=== PATIENT | female | born 1955 | race Caucasian/White ===

== ENCOUNTER 2018-08-16 05:43 | Day surgery (SDC) | payer OTHER ==
[2018-08-13 15:15] VITALS: BMI 23.6
[2018-08-16] MEDS ORDERED: ALPRAZolam 0.25 MG TAB PO PRN (06:00)
[2018-08-16] MEDS ORDERED: SODIUM CHLORIDE 0.9% 1,000 ML in EMPTY BAG 1 BAG IV ONE (06:00)
[2018-08-16] MEDS ORDERED: ASPIRIN 325 MG TAB PO ONE (06:00)
[2018-08-16] MEDS ORDERED: fentaNYL (PF) 50 MCG/ML 2 ML AMP ONE (06:48)
[2018-08-16] MEDS: BENZOCAINE SPRAY 1 CAN MUCOUS MEM ONE ×2 (07:01→07:05)
[2018-08-16] MEDS: fentaNYL (PF) 50 MCG/ML 2 ML AMP IVP ONE ×2 (07:01→07:08)
[2018-08-16 07:03] VITALS: PULSE 65; TEMP 98.6
[2018-08-16] MEDS: MIDAZOLAM (PF) 2 MG/2 ML VIAL IVP ONE ×2 (07:05→07:08)
[2018-08-16] MEDS ORDERED: MIDAZOLAM (PF) 2 MG/2 ML VIAL IVP ONE (07:10)
[2018-08-16] MEDS ORDERED: SODIUM CHLORIDE 0.9% 1,000 ML IV ONE ×2 (07:14→07:41)
[2018-08-16 07:33] LABS: Basophils # (A) 0.1 k/uL (0-0.2); Basophils % (A) 1 %; Eosinophils # (A) 0.6 k/uL (0-0.7); Eosinophils % (A) 5 %; HCT 37.1 % (34.0-46.0); HGB 12.5 gm/dL (11.4-16.0); Lymphocytes # (A) 2.1 k/uL (1.0-4.8); Lymphocytes % (A) 17 %; MCHC 33.6 g/dL (31.0-37.0); MCV 86.3 fL (80.0-100.0); Monocytes # (A) 0.8 k/uL (0-1.0); Monocytes % (A) 7 %; Neutrophils # (A) 8.4 k/uL (1.3-7.7); Neutrophils % (A) 68 %; Platelet Count 300 k/uL (150-450); RDW 15.7 % (11.5-15.5); WBC 12.4 k/uL (3.8-10.6)
[2018-08-16 07:38] LABS: Calcium 10.1 mg/dL (8.4-10.2); Potassium 4.9 mmol/L (3.5-5.1)
[2018-08-16] MEDS ORDERED: LIDOCAINE 1% INJ 10MG/ML (20 ML MDV) ONE ×2 (07:49→07:54)
[2018-08-16] MEDS ORDERED: LIDOCAINE 1% INJ 10MG/ML (20 ML MDV) SQ ONE ×3 (07:52→07:55)
[2018-08-16 08:02] VITALS: RESP 14
--- NOTE | 2018-08-16 08:02 | ECHOT ---
TRANSESOPHAGEAL ECHOCARDIOGRAM INDICATION: Evaluation of aortic valve. PROCEDURE: After explaining the procedure to the patient, its risks and the complications, blood pressure, heart rate, O2 saturation was monitored. The throat was sprayed with Cetacaine. She received 3 mg intravenous Versed and 50 mcg intravenous fentanyl. The probe was introduced into the esophagus without difficulty. Images were obtained. Following that, the probe was removed. There was no immediate complication. FINDINGS: Left atrial size is mildly dilated. Left atrial appendage is normal. Left ventricular size and systolic function normal. The aortic valve is a tricuspid valve with severe calcification by planimetry the valve area is 1.0 centimeter square. The mitral and tricuspid valve are normal. The pulmonic valve is normal. The descending thoracic aorta revealed mild atherosclerotic changes of the descending thoracic aorta. No pericardial effusion was noted. Contrast bubble study revealed no evidence of shunting across the interatrial septum. Doppler pulse wave and color Doppler obtained and revealed moderate aortic regurgitation with mild mitral regurgitation. The peak gradient across the aortic valve was 48 mmHg with a mean of 32 mmHg. There was no shunting by color Doppler study. CONCLUSION: 1. Normal left ventricular size and systolic function. 2. Severely calcified aortic valve, tricuspid valve with aortic valve area of 1 centimeter square and a mean gradient of 32 mmHg consistent with moderate to severe aortic stenosis with moderate aortic regurgitation. 3. Mild mitral regurgitation. 4. Mild atherosclerotic changes of the descending thoracic aorta. 5. No shunting across the interatrial septum. MMODL / IJN: [id number] / MTDD
[2018-08-16] MEDS ORDERED: NITROGLYCERIN 1000MCG/10ML SYRINGE INTRACORON ONE (08:17)
[2018-08-16 08:18] LABS: O2 Sat Blood Gas 71.9 %
[2018-08-16] MEDS ORDERED: IOPAMIDOL-370 100ML BTL INJ ONE ×2 (08:19)
[2018-08-16 08:20] LABS: O2 Sat Blood Gas 98.2 %
[2018-08-16 08:22] LABS: O2 Sat Blood Gas 72.7 %
[2018-08-16] MEDS ORDERED: RX INFO: IV CONTRAST WAS GIVEN 1 EACH MISC MISCELLANE PRN (08:34)
[2018-08-16] MEDS ORDERED: IBUPROFEN 400 MG TAB PO PRN (08:35)
[2018-08-16] MEDS ORDERED: tiZANidine 4 MG TAB PO PRN (08:35)
[2018-08-16] MEDS ORDERED: DIAZEPAM 5 MG TAB PO PRN (08:35)
[2018-08-16] MEDS ORDERED: SODIUM CHLORIDE 0.9% 1,000 ML IV SCH (08:45)
[2018-08-16] MEDS ORDERED: oxyCODONE ER 15 MG TAB.ER.12H PO ONE (09:00)
[2018-08-16] MEDS ORDERED: MULTIVITAMINS, THERA 1 EACH TAB PO SCH (09:00)
[2018-08-16] MEDS ORDERED: BENAZEPRIL PO SCH (09:00)
[2018-08-16] MEDS ORDERED: AMLODIPINE BESYLATE PO SCH (09:00)
--- NOTE | 2018-08-16 09:03 | CC ---
CARDIAC CATHETERIZATION REPORT Mrs. Newman is a 62-year-old female with known history of hypertension, hyperlipidemia, chronic tobacco use, who recently underwent an echocardiogram that was consistent with severe aortic stenosis. In view of that, recommendation was made regarding cardiac catheterization. The procedure as well as the risks and the complications were discussed with the patient who is in full understanding and agreement. PROCEDURE: Patient was brought to photo lab specialist in a fasting semi-sedated state after receiving fentanyl and Benadryl and achieving moderate conscious sedated state. Using Xylocaine anesthesia in the Seldinger technique, a 6-Albanian sheath was introduced in the right femoral artery and an 8-[place]banian sheath in the right femoral vein. Right heart catheterization was performed using [place]-Kirit catheter. Multiple pressure and samples were obtained. Cardiac output by thermodilution was calculated. Following that, selective right and left coronary angiography were performed using 6-[place]banian 4 bend right and left Jeffy catheters. Multiple views of coronary artery including hemiaxial views obtained. A tight pigtail catheter was induced in the left ventricle and pressures were calculated. Following that, catheter and sheath were removed. Hemostasis was obtained with deployment of an Angio-Seal and compression of the right femoral vein. There was no immediate complication. FINDINGS: HEMODYNAMICS: Pulmonary artery systolic pressure of 20 with a diastolic of 8 and a mean of 12 mmHg. Pulmonary capillary wedge pressure A-wave of 6, V-wave of 6 with a mean of 4 mmHg. Right ventricle systolic pressure of 24 with an end-diastolic of 2 mmHg. Right atrial A-wave of 3, V-wave of 2 with a mean of 2 mmHg. Left ventricular end-diastolic pressure of 12 mmHg. Left ventricular systolic pressure of 152 mmHg with an ascending aortic pressure of 128 mmHg with a peak gradient of 28 mmHg and aortic valve area was 1.08 centimeters square. Cardiac output by thermodilution of 4.9 L/minute and by Stacey 4.1 L/minute. Pulmonary artery saturation 72%, right atrial saturation 73%, femoral artery saturation 98%. CORONARIES: LEFT MAIN: This is a short size vessel bifurcating into left circumflex and left anterior descending artery. Left main coronary artery has no evidence of coronary disease. LEFT ANTERIOR DESCENDING ARTERY: This is a large-sized vessel reaching to the apex with a wraparound apex segment giving rise to a large diagonal branch. The left anterior descending artery as well as branches have no evidence of obstructive coronary artery disease. LEFT CIRCUMFLEX: This is a nondominant vessel giving rise to 4 obtuse marginal branches. The second and third one are the largest in caliber. The left circumflex as well as branches have no evidence of obstructive coronary artery disease. RIGHT CORONARY ARTERY: This is a large dominant vessel bifurcating distally PDA and posterolateral segment and branches. The right coronary artery had a catheter-induced spasm that resolved with nitroglycerin intracoronary. It has no evidence of high-grade stenosis. LEFT VENTRICULOGRAM: Left ventriculogram was not performed. CONCLUSION: 1. Normal coronary arteries. 2. Severe aortic stenosis. RECOMMENDATION: In view of finding anatomy, I recommend proceeding with evaluation for possible aortic valve replacement. Those findings and recommendation were discussed with the patient and her family and they are in full understanding and agreement. Duration of procedure is 33 minutes. PAWAN / ANGELITAN: [id number] /
--- NOTE | 2018-08-16 09:03 | LTR ---
August 16, 2018 Re: Patricia Newman Dear Dr. Pollock: I had the opportunity to perform cardiac catheterization on Mrs. Newman at [facility] on the 16 of August and a full copy of the procedure note will be forwarded to you. In brief, she was found to have no evidence of obstructive coronary artery disease with severe aortic stenosis and based on this finding, I would recommend to proceed with evaluation for possible aortic valve replacement. I will keep you updated on her progress. Thank you again for allowing me the opportunity to participate in her care. Please feel free to call for any questions. Sincerely yours, MD PENELOPE LeeL / ANGELITAN: [id number] /
[2018-08-16 13:49] VITALS: BP 124/77
[2018-08-16] MEDS ORDERED: oxyCODONE ER 15 MG TAB.ER.12H PO PRN (16:00)
[2018-08-16] MEDS ORDERED: ATORVASTATIN 80 MG TAB PO SCH (21:00)
== END 2018-08-16 13:30 | disposition home or self-care (01) ==
LOC: CATHCVL 05:43
PROVIDERS: ATTEND Internal Medicine Interventional Cardiology
DX: I08.3 Combined rheumatic disorders of mitral, aortic and tricuspid valves (principal); I70.0 Atherosclerosis of aorta; E78.2 Mixed hyperlipidemia; I11.9 Hypertensive heart disease without heart failure; F17.210 Nicotine dependence, cigarettes, uncomplicated; Z82.49 Family history of ischemic heart disease and other diseases of the circulatory system; Z79.1 Long term (current) use of non-steroidal anti-inflammatories (NSAID); Z79.891 Long term (current) use of opiate analgesic; Z79.899 Other long term (current) drug therapy; Z88.5 Allergy status to narcotic agent
CPT/HCPCS: 93312; 93320; 93325; 93460; 80048; 85018; 82810; 85025; C1760; C1894 ×2; C1769; J2001; J3010; Q9967; J2250

== ENCOUNTER → 2018-10-23 | Outpatient (CLI) | payer OTHER ==
[2018-10-23 10:22] LABS: HCT 32.5 % (34.0-46.0); HGB 10.3 gm/dL (11.4-16.0); MCH 29.2 pg (25.0-35.0); MCHC 31.7 g/dL (31.0-37.0); MCV 92.2 fL (80.0-100.0); Mean Platelet Volume 9.8; Platelet Count 250 k/uL (150-450); RBC 3.53 m/uL (3.80-5.40); RDW 14.7 % (11.5-15.5); WBC 8.6 k/uL (3.8-10.6)
[2018-10-23 10:26] LABS: Appearance,Urine Clear (Clear); Bilirubin,Urine Negative (Negative); Blood,Urine Negative (Negative); Color,Urine Yellow; Glucose,Urine (UA) Negative (Negative); Ketones,Urine Negative (Negative); Leukocyte Esterase,Urine Negative (Negative); Nitrite,Urine Negative (Negative); PH, Urine 5.5 (5.0-8.0); Protein,Urine Negative (Negative); Urobilinogen,Urine <2.0 mg/dL (<2.0)
[2018-10-23 10:31] LABS: Partial Thromboplastin Time 22.2 sec (22.0-30.0); Prothrombin Time 10.3 sec (9.0-12.0)
[2018-10-23 10:40] LABS: Albumin 4.1 g/dL (3.5-5.0); Calcium 9.5 mg/dL (8.4-10.2); Magnesium 2.1 mg/dL (1.6-2.3); Potassium 4.6 mmol/L (3.5-5.1); Total Bilirubin 0.9 mg/dL (0.2-1.3); Total Protein 6.5 g/dL (6.3-8.2)
--- NOTE | 2018-10-23 13:15 | US ---
EXAMINATION TYPE: US carotid duplex BILAT DATE OF EXAM: 10/23/2018 COMPARISON: NONE CLINICAL HISTORY: OPEN HEART. Pre op cardiac surgery EXAM MEASUREMENTS: RIGHT: Peak Systolic Velocity (PSV) cm/sec ----- Right CCA: 98.5 ----- Right ICA: 158.8 ----- Right ECA: 96.5 ICA/CCA ratio: 1.6 RIGHT: End Diastole cm/sec ----- Right CCA: 27.0 ----- Right ICA: 48.5 ----- Right ECA: 13.7 LEFT: Peak Systolic Velocity (PSV) cm/sec ----- Left CCA: 78.7 ----- Left ICA: 111.7 ----- Left ECA: 76.5 ICA/CCA ratio: 1.4 LEFT: End Diastole cm/sec ----- Left CCA: 21.5 ----- Left ICA: 41.3 ----- Left ECA: 13.8 VERTEBRALS (direction of flow): Right Vertebral: Antegrade Left Vertebral: Antegrade Rhythm: Normal Moderate plaque bilateral bifurcations. Increased velocities right ICA Waveform analysis suggests stenosis at the proximal internal carotid artery on the right. IMPRESSION: Hemodynamic significant stenosis of the proximal internal carotid artery on the right co rresponding to possibly 50-69% diameter reduction by Doppler criteria, an indirect measurement of car otid stenosis Criteria for Assigning % of Stenosis / Diameter reduction (Estimation based on the indirect measurements of the internal carotid artery velocities (ICA PSV). 1. Normal (no stenosis)=ICA PSV < 125 cm/s: ratio < 2.0: ICA EDV<40 cm/s. 2. Less than 50% stenosis=ICA PSV < 125 cm/s: ratio < 2.0: ICA EDV<40 cm/s. 3. 50 to 69% stenosis=ICA PSV of 125 to 230 cm/s: ration 2.0 ? 4.0: ICA EDV 40-100 cm/s. 4. Greater than 70% stenosis to near occlusion= ICA PSV > 230 cm/s: ratio > 4.0: ICA EDV > 100 cm/s. 5. Near occlusion= ICA PSV velocities may be low or undetectable: variable ratio and ICA EDV. 6. Total occlusion=unable to detect flow.
--- NOTE | 2018-10-23 13:26 | XR ---
EXAMINATION TYPE: XR chest 2V DATE OF EXAM: 10/23/2018 COMPARISON: NONE HISTORY: Preop TECHNIQUE: Frontal and lateral views of the chest are obtained. FINDINGS: There is no focal air space opacity, pleural effusion, or pneumothorax seen. The cardiac silhouette size is within normal limits. Prominent lung volume may be indicative of underlying COPD. Postop changes are noted to the cervical spine. The osseous structures are intact. IMPRESSION: No acute cardiopulmonary process.
[2018-10-23 18:08] LABS: Hemoglobin A1C 5.6 % (4.0-6.0)
[2018-10-23 19:23] LABS: Hepatitis A Antibody IgM Non-Reactive (Non-Reactive); Hepatitis B Core IgM Non-Reactive (Non-Reactive)
--- NOTE | 2018-10-24 14:47 | P.VSCSTY ---
Greater Saphenous Vein Mapping This is bilateral lower extremity greater saphenous vein mapping. Date of service 10/23/2018 Vein quality and ultrasound appearance no endoluminal thrombus or wall changes are seen. Vein size groin right 6.9 x 5.6 groin left 5.2 x 4.2 High thigh right 4.2 x 3.5 high thigh left 4.1 x 3.1 Mid thigh right 3.8 x 3.4 mid thigh left 4.9 x 3.1 Above-knee right 5.1 x 4.2 above-knee left 3.6 x 3.0 Below knee right 3.9 x 2.8 below-knee left 2.8 x 2.3 Mid calf right 3.2 x 2.8 mid calf left 2.9 x 2.3 Ankle right 2.7 x 2.0 ankle left 2.3 x 1.9 Impression usable bilateral greater saphenous vein.
== END | disposition home or self-care (01) ==
LOC: LABPAT 08:44
PROVIDERS: ATTEND Family Medicine
DX: I35.0 Nonrheumatic aortic (valve) stenosis (principal); E78.2 Mixed hyperlipidemia; I65.21 Occlusion and stenosis of right carotid artery
CPT/HCPCS: 36415; 71046; 80053; 80061; 80074; 81003; 83036; 83735; 84443; 85027; 85610; 85730; 87070; 87086; 93005; 93880; 93970

== ENCOUNTER 2018-10-31 05:59 | Inpatient (IN) | payer OTHER ==
[~2018-10-31 05:59] MED LIST: ALBUMIN HUMAN 25% 50 ML IV ONE; ALBUMIN HUMAN 5% 500 ML IVPB ONE; ASPIRIN 325 MG TAB PO ONE; ATORVASTATIN 10 MG TAB PO ONE; CALCIUM CHLORIDE 100 MG/ML 10 ML SYRINGE IV ONE; CARDIOPLEGIC SOLN (K+ 16 MEQ/L 1,000 ML with SODIUM BICARB (1 MEQ/ML) 20 ML, LIDOCAINE ... PERFUSION ONE; CHLORHEXIDINE GLUCONATE 15 ML CUP MUCOUS MEM ONE; CLEVIDIPINE BUTYRATE 25 MG in EMPTY BAG 1 BAG IV ONE; HEPARIN SODIUM 1,000 UN/ML (10ML VL) IV ONE; HEPARIN SODIUM,PORCINE 5,000 UNIT in SODIUM CHLORIDE 0.9% 500 ML 500 ML IV ONE; INSULIN REGULAR 100 UNIT in SODIUM CHLORIDE 0.9% 100 ML IV ONE; LACTATED RINGERS 1,000 ML IV ONE; MAGNESIUM SULFATE MG 500 MG/ML IV ONE; MANNITOL 25% 12.5 GM/50 ML VIAL IV ONE; METOPROLOL TARTRATE 12.5 MG TAB PO ONE; NITROGLYCERIN SL TABS 0.4 MG TAB SUBLINGUAL ONE; NITROGLYCERIN-D5W PMX 25 MG/250 ML BTL IV ONE; NOREPINEPHRINE 4 MG in SODIUM CHLORIDE 0.9% 250 ML IV ONE; PAPAVERINE 360 MG in SODIUM CHLORIDE 0.9% 90 ML IV ONE; PHENYLEPHRINE 10 MG/ML VIAL IV ONE; PHENYLEPHRINE 40 MG in SODIUM CHLORIDE 0.9% 250 ML IV ONE; PROPOFOL 1,000 MG/100 ML VIAL IV ONE; PROTAMINE SULFATE 10 MG/ML 25 ML VIAL IV ONE; PROTAMINE SULFATE 250 MG in EMPTY BAG 1 BAG IV ONE; SODIUM BICARB 8.4% 50 ML SYR (1 MEQ/ML) IV ONE; SODIUM CHLORIDE 0.9% 1,000 ML IV ONE; TRANEXAMIC ACID 2,000 MG in SODIUM CHLORIDE 0.9% 80 ML IV ONE; VANCOMYCIN 1,000 MG VIAL MISCELLANE ONE; ceFAZolin 1,000 MG in SODIUM CHLORIDE 0.9% IRRIGATIO 1,000 ML IRRIGATION ONE; ceFAZolin 2,000 MG in SODIUM CHLORIDE 0.9% 30 ML IVPB ONE
[2018-10-31] MEDS ORDERED: HEPARIN SODIUM,PORCINE 10,000 UNIT/ML 1 ML VIAL ONE (07:35)
[2018-10-31] MEDS ORDERED: VECURONIUM 10 MG VIAL IV ONE (07:35)
[2018-10-31] MEDS ORDERED: MIDAZOLAM 2 MG/2 ML VIAL ONE (07:35)
[2018-10-31] MEDS ORDERED: PROPOFOL 10 MG/ML 20 ML VIAL IV ONE (07:35)
[2018-10-31] MEDS ORDERED: fentaNYL (PF) 50 MCG/ML 50 ML VIAL ONE (07:35)
[2018-10-31] MEDS ORDERED: NITROGLYCERIN-D5W PMX 50 MG/250 ML BOTTLE IV ONE (07:35)
[2018-10-31] MEDS ORDERED: PROTAMINE SULFATE 10 MG/ML 25 ML VIAL IV ONE (07:35)
[2018-10-31] MEDS ORDERED: SODIUM CHLORIDE 0.9% 250 ML BAG ONE (07:35)
[2018-10-31] MEDS ORDERED: TRANEXAMIC ACID 1,000 MG/10 ML VIAL ONE (07:35)
[2018-10-31] MEDS ORDERED: ELECTROLYTE-R (PH 7.4) 1,000 ML IV.SOLN IV ONE (07:35)
[2018-10-31 08:35] LABS: ABG Base Excess 3.7 mmol/L; ABG Glucose Whole Blood 88 mg/dL (75-99); ABG HCO3 28 mmol/L (21-25); ABG Hematocrit 28 % (34.0-46.0); ABG Ionized Calcium 4.8 mg/dL (4.5-5.3); ABG Lactic Acid Whole Blood 0.9 mmol/L (0.5-1.6); ABG PCO2 37 mmHg (35-45); ABG PH 7.48 (7.35-7.45); ABG PO2 315 mmHg (83-108); ABG Potassium Whole Blood 4.2 mmol/L (3.4-4.5); ABG Sodium Whole Blood 142 mmol/L (135-146); ABG TCO2 29 mmol/L (19-24)
[2018-10-31 09:11] LABS: ABG Base Excess 3.8 mmol/L; ABG HCO3 28 mmol/L (21-25); ABG Hematocrit 27 % (34.0-46.0); ABG Ionized Calcium 4.8 mg/dL (4.5-5.3); ABG PCO2 39 mmHg (35-45); ABG PH 7.46 (7.35-7.45); ABG PO2 285 mmHg (83-108); ABG Sodium Whole Blood 142 mmol/L (135-146); ABG TCO2 29 mmol/L (19-24)
[2018-10-31 09:47] LABS: ABG Base Excess 1.5 mmol/L; ABG Glucose Whole Blood 117 mg/dL (75-99); ABG HCO3 26 mmol/L (21-25); ABG Ionized Calcium 4.6 mg/dL (4.5-5.3); ABG PCO2 39 mmHg (35-45); ABG PH 7.43 (7.35-7.45); ABG PO2 310 mmHg (83-108); ABG Potassium Whole Blood 4.1 mmol/L (3.4-4.5); ABG Sodium Whole Blood 139 mmol/L (135-146); ABG TCO2 27 mmol/L (19-24)
--- NOTE | 2018-10-31 09:53 | P.ANPRN ---
Procedure Note - Anesthesia - Invasive Line Right Central Line Date of Procedure: 10/31/18 Time of Procedure: 06:50 Location of Patient Procedure: PACU Preparation: Sterile Prep, Sterile Dressing Ultrasound Used: Yes Needle Guage: 18 Narrative: Central line placement per sterile protocol utilized. Right [place] Kirit Date of Procedure: 10/31/18 Time of Procedure: 07:05 Location of Patient Procedure: PACU Preparation: Sterile Prep, Sterile Dressing Narrative: [place] had ports flushed and balloon tested. Advanced to 20 cm, balloon inflated. Catheter advanced until PA waveform obtained @ 37 cm. Catheter advanced to 40 cm and balloon deflated. Catheter secured.
[2018-10-31 10:21] LABS: ABG Glucose Whole Blood 91 mg/dL (75-99); ABG HCO3 25 mmol/L (21-25); ABG Ionized Calcium 4.6 mg/dL (4.5-5.3); ABG Lactic Acid Whole Blood 1.7 mmol/L (0.5-1.6); ABG PCO2 41 mmHg (35-45); ABG PH 7.39 (7.35-7.45); ABG PO2 366 mmHg (83-108); ABG Potassium Whole Blood 4.2 mmol/L (3.4-4.5); ABG Sodium Whole Blood 138 mmol/L (135-146); ABG TCO2 26 mmol/L (19-24)
[2018-10-31 11:40] LABS: ABG Base Excess -1.2 mmol/L; ABG Glucose Whole Blood 109 mg/dL (75-99); ABG HCO3 24 mmol/L (21-25); ABG Ionized Calcium 4.1 mg/dL (4.5-5.3); ABG PCO2 40 mmHg (35-45); ABG PH 7.38 (7.35-7.45); ABG PO2 331 mmHg (83-108); ABG Potassium Whole Blood 3.7 mmol/L (3.4-4.5); ABG Sodium Whole Blood 139 mmol/L (135-146); ABG TCO2 25 mmol/L (19-24)
[2018-10-31 11:48] LABS: ABG Hematocrit 21 % (34.0-46.0)
[2018-10-31 11:48] LABS: ABG Glucose Whole Blood 101 mg/dL (75-99)
[2018-10-31 11:49] LABS: ABG Hematocrit 21 % (34.0-46.0)
[2018-10-31 11:50] LABS: ABG Hematocrit 24 % (34.0-46.0); ABG Lactic Acid Whole Blood 2.1 mmol/L (0.5-1.6)
--- NOTE | 2018-10-31 11:55 | P.OP ---
Date of Procedure: 10/31/18 Preoperative Diagnosis: Bicuspid aortic stenosis Postoperative Diagnosis: Same Procedure(s) Performed: Aortic valve replacement with 21 mm of the Avalus bovine pericardial prosthesis, epi-aortic ultrasonography, ligation of left atrial appendage with 35 mm AtriClip Implants: Avalus aortic valve, AtriClip Anesthesia: GETA Surgeon: Mp Petty Supervisor Soakers #1: Aly Georges Supervisor Soakers #2: Gaston Avitia Estimated Blood Loss (ml): 200 IV fluids (ml): 2,000 Urine output (ml): 500 Pathology: other (Aortic valve) Condition: stable Disposition: ICU Indications for Procedure: 63-year-old female with worsening shortness of breath and severe aortic valve stenosis due to bicuspid aortic valve Operative Findings: Calcific bicuspid aortic valve with fusion of the left and right cusps. Severe calcification of the annulus. Small aortic root. Description of Procedure: The patient was brought to the operating room placed supine on the operating table anesthetized and intubated. T probe was placed. The anterior torso and lower extremities were sterilely prepped and draped. Midline sternotomy was performed. Standard sternal retractor was placed. The left pleural space was opened widely and the right pleural space was opened minimally. Pericardium was opened in the midline and the heart exposed with pericardial sutures. Epi- aortic ultrasonography was performed. The ascending aorta was normal. Standard cannulation sutures were placed. Patient was heparinized and cannulated with a 6 mm soft flow cannula in the distal ascending aorta and a two-stage venous cannula through the right atrial appendage into the inferior vena cava. Antegrade and retrograde cardioplegia lines were placed. Pursestring suture was placed in the right superior pulmonary vein. Patient was placed on cardiopulmonary bypass and stabilized. Aorta was crossclamped and the heart was arrested with cold crystalloid cardioplegia followed by retrograde cardioplegia. Left atrial vent was placed through the right superior pulmonary vein pursestring. Aorta was opened transversely and the aortic valve was exposed. Aortic valve was excised and the annulus decalcified. Copious irrigation was performed. Circumferential valve sutures of 2-0 Tycron were placed with pledgets on the ventricular side to allow a supra-annular implantation. The annulus was sized. A 21 sizer fit very easily. A 23 sizer did not fit. Was decided to place a 21 mm Avalus bovine pericardial valve. This was appropriately washed on the back table and brought up onto the field. The valve sutures were placed in the sewing ring of the valve and it was seated without difficulty. Valve sutures were tied and cut and the valve was noted to have seated well. We again irrigated and then closed the aorta with a 2 layer running closure of 4-0 Prolene. This was reinforced with some pro-gel. Left atrial vent was removed and the pursestring suture tied. Patient was placed in Trendelenburg and the cross-clamp was removed. Retrograde cardioplegia line was removed and atrial and ventricular pacing wires were placed. Patient returned to a spontaneous sinus rhythm. Heart was de-aired through the apex with a 16- gauge Angiocath. The site was oversewn with a 6-0 Prolene. The aortic vent line was then removed and the pursestring suture tied. Patient was weaned from cardiopulmonary bypass without the use of inotropic support. Heparin was reversed with protamine and she was decannulated in standard fashion. The aortic cannulation site was reinforced with a 4 pledgeted Prolene suture. Left atrial cannulation site was reinforced with a 0 silk tie. Good hemostasis was obtained throughout. Left pleural space was drained with 32-[place] chest tube in the mediastinum with a 36-[place] chest tube. Chest was irrigated with antibiotic solution. Sternum was closed with 8 sternal wires. Fascia was closed with 0 Ethibond. Subcutaneous and subcuticular layers were closed with layers of Vicryl suture. Dry sterile dressings were applied and the patient was transferred to the ICU in stable condition on no inotropic support having received no blood transfusions.
[2018-10-31] MEDS ORDERED: AMIODARONE 360 MG in DEXTROSE 5% IN WATER 200 ML IV PRN ×2 (11:57)
[2018-10-31] MEDS ORDERED: Magnesium Replacement Protocol 1 EACH MISC MISCELLANE PRN (11:57)
[2018-10-31] MEDS ORDERED: IPRATROPIUM-ALBUTEROL 3 ML NEB INHALATION PRN (11:57)
[2018-10-31] MEDS ORDERED: METOCLOPRAMIDE 5 MG/ML 2 ML VIAL IVP PRN (11:57)
[2018-10-31] MEDS ORDERED: AMIODARONE 300 MG in DEXTROSE 5% IN WATER 250 ML IV PRN ×2 (11:57)
[2018-10-31] MEDS ORDERED: INSULIN REGULAR 100 UNIT in SODIUM CHLORIDE 0.9% 100 ML IV SCH (11:57)
[2018-10-31] MEDS ORDERED: Potassium Replacement Protocol 1 EACH MISC MISCELLANE PRN (11:57)
[2018-10-31] MEDS ORDERED: DEXTROSE 5% IN WATER 100 ML with AMIODARONE 150 MG IV PRN (11:57)
[2018-10-31] MEDS ORDERED: BENZOCAINE/MENTHOL LOZENG 1 EACH LOZENGE MUCOUS MEM PRN (11:57)
[2018-10-31] MEDS ORDERED: ONDANSETRON 4 MG/2 ML VIAL IVP PRN (11:57)
[2018-10-31] MEDS ORDERED: CALCIUM GLUCONATE 2 GM in SODIUM CHLORIDE 0.9% 100 ML IVPB PRN (11:57)
[2018-10-31] MEDS ORDERED: PROPOFOL 1,000 MG in EMPTY BAG 1 BAG IV SCH (11:57)
[2018-10-31] MEDS ORDERED: Phosphorus Replacement Protoco 1 EACH MISC MISCELLANE PRN (11:57)
[2018-10-31 12:22] LABS: Glucose,Whole Blood 104 mg/dL (75-99)
[2018-10-31 12:26] LABS: Ionized Calcium 4.6 mg/dL (4.5-5.3)
[2018-10-31 12:29] LABS: Basophils % (A) 1 %; Eosinophils # (A) 0.4 k/uL (0-0.7); Eosinophils % (A) 4 %; HCT 25.2 % (34.0-46.0); Lymphocytes # (A) 1.1 k/uL (1.0-4.8); Lymphocytes % (A) 11 %; MCH 29.6 pg (25.0-35.0); MCHC 32.4 g/dL (31.0-37.0); MCV 91.1 fL (80.0-100.0); Mean Platelet Volume 9.8; Monocytes # (A) 0.5 k/uL (0-1.0); Monocytes % (A) 5 %; Neutrophils # (A) 7.5 k/uL (1.3-7.7); Neutrophils % (A) 79 %; RBC 2.76 m/uL (3.80-5.40); WBC 9.5 k/uL (3.8-10.6)
--- NOTE | 2018-10-31 12:29 | XR ---
EXAMINATION TYPE: XR chest 1V portable DATE OF EXAM: 10/31/2018 COMPARISON: 10/23/2018 HISTORY: Post surgery TECHNIQUE: Single frontal view of the chest is obtained. FINDINGS: [place]-Kirit catheter seen overlying proximal pulmonary outflow tract. Suggestion of epicardi al lead. ET tube 1.7 cm above maral. NG tube seen coursing in the left upper quadrant of the abdomen . Mediastinal drain and left-sided chest tube. Less than 5% left apical pneumothorax. Heart size norm al. No consolidation or pleural effusion. IMPRESSION: 1. Postoperative change with tiny left apical less than 5% pneumothorax.
[2018-10-31 12:31] LABS: INR 1.2 (<1.2); Prothrombin Time 12.6 sec (9.0-12.0)
[2018-10-31] MEDS: IPRATROPIUM-ALBUTEROL 3 ML NEB INHALATION SCH ×4 (12:35→19:46)
[2018-10-31 12:38] LABS: ALT 25 U/L (9-52); AST 25 U/L (14-36); African American GFR (CKD) >90 (>60 ml/min/1.73 sqM); Albumin 2.3 g/dL (3.5-5.0); Alkaline Phosphatase 49 U/L (38-126); Anion Gap 5 mmol/L; Blood Urea Nitrogen 17 mg/dL (7-17); Calcium 7.4 mg/dL (8.4-10.2); Carbon Dioxide 23 mmol/L (22-30); Chloride 111 mmol/L (98-107); Glucose 99 mg/dL (74-99); Magnesium 3.1 mg/dL (1.6-2.3); Potassium 3.9 mmol/L (3.5-5.1); Sodium 139 mmol/L (137-145); Total Bilirubin 0.4 mg/dL (0.2-1.3); Total Protein 3.8 g/dL (6.3-8.2)
[2018-10-31 12:40] LABS: ABG HCO3 25 mmol/L (21-25); ABG PCO2 40 mmHg (35-45); ABG PO2 >400 mmHg (83-108); ABG TCO2 26 mmol/L (19-24)
[2018-10-31 12:44] LABS: HGB 8.2 gm/dL (11.4-16.0)
[2018-10-31] MEDS: CLEVIDIPINE BUTYRATE 25 MG in EMPTY BAG 1 BAG IV SCH (12:45)
[2018-10-31 13:12] LABS: Glucose,Whole Blood 110 mg/dL (75-99)
[2018-10-31 13:17] LABS: Platelet Count 97 k/uL (150-450)
[2018-10-31 13:18] LABS: Anisocytosis (M) Present
[2018-10-31] MEDS: ACETAMINOPHEN IV (For NPO) 1,000 MG in EMPTY BAG 1 BAG IVPB SCH ×2 (13:19→20:51)
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
[2018-10-31] MEDS ORDERED: fentaNYL (PF) 50 MCG/ML 2 ML AMP IVP ONE (13:43)
[2018-10-31] MEDS ORDERED: DEXMEDETOMIDINE/0.9% NACL(PMX) 400 MCG in EMPTY BAG 1 BAG IV SCH (13:45)
[2018-10-31] MEDS: LACTATED RINGERS 1,000 ML IV SCH (14:01)
[2018-10-31] MEDS: POTASSIUM CHLORIDE 10 MEQ in WATER FOR INJECTION 1 100ML.BAG IVPB SCH ×2 (14:14→16:00)
[2018-10-31 14:20] LABS: Glucose,Whole Blood 157 mg/dL (75-99)
[2018-10-31 15:29] LABS: Glucose,Whole Blood 135 mg/dL (75-99)
[2018-10-31 15:51] LABS: ABG Base Excess -0.3 mmol/L; ABG HCO3 25 mmol/L (21-25); ABG PCO2 44 mmHg (35-45); ABG PH 7.37 (7.35-7.45); ABG PO2 128 mmHg (83-108); ABG TCO2 26 mmol/L (19-24); Allen Test Performed? Yes
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
[2018-10-31 16:02] LABS: Basophils # (A) 0.1 k/uL (0-0.2); Basophils % (A) 1 %; Eosinophils # (A) 0.3 k/uL (0-0.7); Eosinophils % (A) 2 %; HCT 29.5 % (34.0-46.0); HGB 9.6 gm/dL (11.4-16.0); Lymphocytes # (A) 1.3 k/uL (1.0-4.8); Lymphocytes % (A) 10 %; MCH 29.4 pg (25.0-35.0); MCHC 32.3 g/dL (31.0-37.0); MCV 90.8 fL (80.0-100.0); Mean Platelet Volume 9.6; Monocytes # (A) 0.6 k/uL (0-1.0); Monocytes % (A) 4 %; Neutrophils # (A) 10.6 k/uL (1.3-7.7); Neutrophils % (A) 82 %; Platelet Count 127 k/uL (150-450); RBC 3.26 m/uL (3.80-5.40); RDW 14.1 % (11.5-15.5)
[2018-10-31] MEDS: oxyCODONE ER 15 MG TAB.ER.12H PO SCH ×2 (16:25→23:00)
[2018-10-31] MEDS: ceFAZolin IN SWFI 2 GM/20 ML SYRINGE IVP SCH (16:46)
[2018-10-31] MEDS: ALBUMIN HUMAN 5% 250 ML in EMPTY BAG 1 BAG IVPB PRN ×3 (17:09→22:14)
[2018-10-31 17:11] LABS: Glucose,Whole Blood 131 mg/dL (75-99)
[2018-10-31 18:26] LABS: Glucose,Whole Blood 118 mg/dL (75-99)
[2018-10-31 18:27] LABS: Basophils # (A) 0.1 k/uL (0-0.2); Basophils % (A) 1 %; Eosinophils # (A) 0.2 k/uL (0-0.7); Eosinophils % (A) 2 %; HCT 28.9 % (34.0-46.0); HGB 9.3 gm/dL (11.4-16.0); Lymphocytes % (A) 9 %; MCH 29.3 pg (25.0-35.0); MCHC 32.2 g/dL (31.0-37.0); MCV 91.2 fL (80.0-100.0); Mean Platelet Volume 10.2; Monocytes # (A) 0.4 k/uL (0-1.0); Monocytes % (A) 4 %; Neutrophils # (A) 8.7 k/uL (1.3-7.7); Neutrophils % (A) 84 %; Platelet Count 121 k/uL (150-450); RBC 3.17 m/uL (3.80-5.40); WBC 10.4 k/uL (3.8-10.6)
[2018-10-31 19:27] LABS: Glucose,Whole Blood 121 mg/dL (75-99)
[2018-10-31] MEDS: tiZANidine 4 MG TAB PO PRN (19:53)
[2018-10-31] MEDS: KETOROLAC 30 MG/ML 1 ML VIAL IVP SCH (20:40)
[2018-10-31] MEDS: fentaNYL (PF) 50 MCG/ML 2 ML AMP IVP PRN ×2 (20:45→23:45)
[2018-10-31] MEDS: HEPARIN SODIUM,PORCINE 5,000 UNIT/ML 1 ML VIAL SQ SCH (21:18)
[2018-10-31 21:33] LABS: Glucose,Whole Blood 143 mg/dL (75-99)
[2018-10-31 22:19] LABS: Glucose,Whole Blood 127 mg/dL (75-99)
[2018-10-31] MEDS: MUPIROCIN 2% OINT 22 GM TUBE NASAL SCH (23:02)
[2018-10-31 23:51] LABS: Glucose,Whole Blood 116 mg/dL (75-99)
[2018-11-01] MEDS: ceFAZolin IN SWFI 2 GM/20 ML SYRINGE IVP SCH ×2 (00:41→08:48)
[2018-11-01 01:26] LABS: Glucose,Whole Blood 106 mg/dL (75-99)
[2018-11-01] MEDS ORDERED: HYDROcodone/APAP 5-325MG 1 EACH TAB PO PRN (02:00)
[2018-11-01 03:22] LABS: Glucose,Whole Blood 116 mg/dL (75-99)
[2018-11-01] MEDS: HYDROcodone/APAP 5-325MG 1 EACH TAB PO PRN ×3 (03:25→20:10)
[2018-11-01] MEDS: HEPARIN SODIUM,PORCINE 5,000 UNIT/ML 1 ML VIAL SQ SCH ×3 (03:32→20:11)
[2018-11-01] MEDS: KETOROLAC 30 MG/ML 1 ML VIAL IVP SCH ×4 (05:31→23:15)
[2018-11-01 06:03] LABS: Glucose,Whole Blood 114 mg/dL (75-99)
[2018-11-01 06:17] LABS: Basophils % (A) 0 %; Eosinophils # (A) 0.2 k/uL (0-0.7); Eosinophils % (A) 3 %; HCT 27.2 % (34.0-46.0); HGB 8.9 gm/dL (11.4-16.0); Lymphocytes % (A) 12 %; MCH 29.4 pg (25.0-35.0); MCHC 32.8 g/dL (31.0-37.0); MCV 89.6 fL (80.0-100.0); Mean Platelet Volume 10.4; Monocytes # (A) 0.4 k/uL (0-1.0); Monocytes % (A) 5 %; Neutrophils # (A) 6.6 k/uL (1.3-7.7); Neutrophils % (A) 80 %; RBC 3.03 m/uL (3.80-5.40); RDW 14.4 % (11.5-15.5); WBC 8.2 k/uL (3.8-10.6)
[2018-11-01 06:24] LABS: Ionized Calcium 5.1 mg/dL (4.5-5.3)
[2018-11-01 06:40] LABS: Platelet Count 90 k/uL (150-450)
[2018-11-01] MEDS: fentaNYL (PF) 50 MCG/ML 2 ML AMP IVP PRN ×2 (06:50→10:26)
[2018-11-01 06:51] LABS: Albumin 3.2 g/dL (3.5-5.0); Calcium 8.5 mg/dL (8.4-10.2); Magnesium 2.5 mg/dL (1.6-2.3); Total Bilirubin 0.7 mg/dL (0.2-1.3); Total Protein 4.9 g/dL (6.3-8.2)
[2018-11-01] MEDS: IPRATROPIUM-ALBUTEROL 3 ML NEB INHALATION SCH ×4 (07:27→19:52)
[2018-11-01] MEDS: METOPROLOL TARTRATE 12.5 MG TAB PO SCH ×2 (08:48→20:15)
[2018-11-01] MEDS: LACTATED RINGERS 1,000 ML IV SCH (08:48)
[2018-11-01] MEDS: ASPIRIN 325 MG TAB PO SCH (08:48)
[2018-11-01] MEDS: ATORVASTATIN 40 MG TAB PO SCH (08:48)
[2018-11-01] MEDS: MULTIVITAMINS, THERA 1 EACH TAB PO SCH (08:49)
[2018-11-01] MEDS: oxyCODONE ER 15 MG TAB.ER.12H PO SCH ×3 (08:49→21:46)
[2018-11-01] MEDS: MUPIROCIN 2% OINT 22 GM TUBE NASAL SCH ×2 (08:54→21:47)
[2018-11-01] MEDS ORDERED: MAGNESIUM HYDROXIDE 2,400 MG/10 ML CUP PO PRN (09:00)
[2018-11-01] MEDS ORDERED: PANTOPRAZOLE 40 MG/10 ML VIAL IVP SCH (09:00)
[2018-11-01] MEDS ORDERED: BISACODYL 10 MG SUPP RECTAL PRN (09:00)
[2018-11-01 09:09] LABS: Glucose,Whole Blood 186 mg/dL (75-99)
--- NOTE | 2018-11-01 09:50 | XR ---
EXAMINATION TYPE: XR chest 1V portable DATE OF EXAM: 11/01/2018 COMPARISON: 10/31/2018 HISTORY: Postop TECHNIQUE: Single frontal view of the chest is obtained. FINDINGS: Mediastinal drain and chest tube stable. [place]-Kirit catheter stable. ET and NG tube have be en removed. Bilateral consolidation and small effusion. No sizable pneumothorax. Cardiomegaly and pos tsurgical changes noted. Atherosclerotic change aorta. Suggestion of epicardial lead. Tiny less than 5% left apical pneumothorax. IMPRESSION: 1. Interval development of small bilateral effusions and basilar atelectasis. Mild central venous con gestion in the differential diagnosis. 2. Stable tiny less than 5% left apical pneumothorax.
--- NOTE | 2018-11-01 10:00 | P.PN ---
Subjective Progress Note Date: 11/01/18 Principal diagnosis: aortic valve replacement Objective - Vital Signs Vital signs: Vital Signs Temp 99.1 F 11/01/18 08:00 Pulse 85 11/01/18 09:00 Resp 22 11/01/18 09:00 BP 93/60 11/01/18 09:00 Pulse Ox 96 11/01/18 09:00 Intake & Output 10/31/18 11/01/18 11/01/18 18:59 06:59 18:59 Intake Total 855.784 975.000 174.528 Output Total 3690 1110 240 Balance -2834.216 -135.000 -65.472 Weight 73.1 kg Intake: IV 108 436 170 0.9NS Cardiac Output 70 50 20 0.9NS Pressure Bag 36 36 Lactated Ringers 1,000 ml 350 150 @ 50 mls/hr IV .Q20H [facility] Rx#:[id number] Intake, IV Titration 747.784 539.000 4.528 Amount ACETAMINOPHEN IV (For NPO 100 ) 1,000 mg In Empty Bag 1 bag @ 400 mls/hr IVPB Q6H [facility] Rx#:[id number] Albumin Human 5% 250 ml 250 250 In Empty Bag 1 bag @ 250 mls/hr IVPB Q1HR PRN Rx#: [id number] Clevidipine Butyrate 25 6.833 mg In Empty Bag 1 bag @ 1 MG/HR 2 mls/hr IV .Q24H [facility] Rx#:[id number] Dexmedetomidine/0.9% NaCl 16.336 83.664 (Pmx) 400 mcg In Empty Bag 1 bag @ Titrate IV . Q0M [facility] Rx#:[id number] Insulin Regular 100 unit 4.916 5.336 4.528 In Sodium Chloride 0.9% 100 ml @ Per Protocol IV .Q0M [facility] Rx#:[id number] Lactated Ringers 1,000 ml 250 200 @ 50 mls/hr IV .Q20H [facility] Rx#:[id number] Potassium Chloride 10 meq 100 In Water For Injection 1 100ml.bag @ 100 mls/hr IVPB Q1H [facility] Rx#: [id number] Propofol 1,000 mg In 19.699 Empty Bag 1 bag @ Titrate IV .Q0M [facility] Rx#: [id number] Output: Chest Tube Drainage 190 280 80 Mediastinal and Left 190 280 80 Pleural Urine 1000 830 160 Estimated Blood Loss 2500 Other: Voiding Method Indwelling Catheter Indwelling Catheter ABP, PAP, CO, CI - Last Documented Arterial Blood Pressure 146/62 Pulmonary Artery Pressure 28/16 Cardiac Output 4.6 Cardiac Index 2.7 - Exam Constitutional: No acute distress, conversant Eyes: Anicteric sclerae, moist conjunctiva, no lid-lag, PERRLA ENMT: NC/AT,Oropharynx clear Neck:Supple, No carotid bruits; No thyromegaly Lungs: Clear to auscultation, Clear to percussion, Normal respiratory effort, no accessory muscle use Cardiovascular: Heart regular in rate and rhythm, No murmurs, gallops, or rubs no peripheral edema Abdominal: Soft Nontender, nom distended, no guarding, no rebound or rigidity, Normoactive bowel sounds Extremities:No digital cyanosis No clubbing, Psychiatric: Alert and oriented to person, place and time Neuro: Muscles Strength 5/5 in all 4 extremities, Sensation to light touch grossly present throughout, Cranial nerves II-XII grossly intact. - Labs CBC & Chem 7: 11/01/18 05:45 11/01/18 05:45 Labs: Abnormal Lab Results - Last 24 Hours (Table) 10/23/18 10/31/18 10/31/18 Range/Units 09:00 08:36 09:13 WBC (3.8-10.6) k/uL RBC (3.80-5.40) m/uL Hgb (11.4-16.0) gm/dL Hct (34.0-46.0) % Plt Count (150-450) k/uL Neutrophils # (1.3-7.7) k/uL PT (9.0-12.0) sec INR (<1.2) ABG pH 7.48 H 7.46 H (7.35-7.45) ABG pO2 315 H 285 H (83-108) mmHg ABG HCO3 28 H 28 H (21-25) mmol/L ABG Total CO2 29 H 29 H (19-24) mmol/L ABG O2 Saturation 100.0 H 100.0 H (94-97) % ABG Hematocrit 28 L 27 L (34.0-46.0) % ABG Ionized Calcium (4.5-5.3) mg/dL ABG Glucose 101 H (75-99) mg/dL ABG Lactic Acid (0.5-1.6) mmol/L Hemoglobin 9.3 L 8.8 L (11.4-16.0) gm/dL Chloride (98-107) mmol/L Glucose (74-99) mg/dL POC Glucose (mg/dL) (75-99) mg/dL Calcium (8.4-10.2) mg/dL Magnesium (1.6-2.3) mg/dL AST (14-36) U/L Total Protein (6.3-8.2) g/dL Albumin (3.5-5.0) g/dL Arterial Blood Glucose 101 H (75-99) mg/dL Crossmatch See Detail 10/31/18 10/31/18 10/31/18 Range/Units 09:48 10:22 11:41 WBC (3.8-10.6) k/uL RBC (3.80-5.40) m/uL Hgb (11.4-16.0) gm/dL Hct (34.0-46.0) % Plt Count (150-450) k/uL Neutrophils # (1.3-7.7) k/uL PT (9.0-12.0) sec INR (<1.2) ABG pH (7.35-7.45) ABG pO2 310 H 366 H 331 H (83-108) mmHg ABG HCO3 26 H (21-25) mmol/L ABG Total CO2 27 H 26 H 25 H (19-24) mmol/L ABG O2 Saturation 100.0 H 100.0 H 100.0 H (94-97) % ABG Hematocrit 21 L 21 L 24 L (34.0-46.0) % ABG Ionized Calcium 4.1 L (4.5-5.3) mg/dL ABG Glucose 117 H 109 H (75-99) mg/dL ABG Lactic Acid 1.7 H 2.1 H (0.5-1.6) mmol/L Hemoglobin 7.0 L* 6.7 L* 7.8 L (11.4-16.0) gm/dL Chloride (98-107) mmol/L Glucose (74-99) mg/dL POC Glucose (mg/dL) (75-99) mg/dL Calcium (8.4-10.2) mg/dL Magnesium (1.6-2.3) mg/dL AST (14-36) U/L Total Protein (6.3-8.2) g/dL Albumin (3.5-5.0) g/dL Arterial Blood Glucose 117 H 109 H (75-99) mg/dL Crossmatch 10/31/18 10/31/18 10/31/18 Range/Units 12:05 12:05 12:05 WBC (3.8-10.6) k/uL RBC 2.76 L (3.80-5.40) m/uL Hgb 8.2 L D (11.4-16.0) gm/dL Hct 25.2 L (34.0-46.0) % Plt Count 97 L D (150-450) k/uL Neutrophils # (1.3-7.7) k/uL PT 12.6 H (9.0-12.0) sec INR 1.2 H (<1.2) ABG pH (7.35-7.45) ABG pO2 (83-108) mmHg ABG HCO3 (21-25) mmol/L ABG Total CO2 (19-24) mmol/L ABG O2 Saturation (94-97) % ABG Hematocrit (34.0-46.0) % ABG Ionized Calcium (4.5-5.3) mg/dL ABG Glucose (75-99) mg/dL ABG Lactic Acid (0.5-1.6) mmol/L Hemoglobin (11.4-16.0) gm/dL Chloride 111 H (98-107) mmol/L Glucose (74-99) mg/dL POC Glucose (mg/dL) (75-99) mg/dL Calcium 7.4 L (8.4-10.2) mg/dL Magnesium 3.1 H (1.6-2.3) mg/dL AST (14-36) U/L Total Protein 3.8 L (6.3-8.2) g/dL Albumin 2.3 L (3.5-5.0) g/dL Arterial Blood Glucose (75-99) mg/dL Crossmatch 07/10/19 07/10/19 07/10/19 Range/Units 12:10 12:35 13:00 WBC (3.8-10.6) k/uL RBC (3.80-5.40) m/uL Hgb (11.4-16.0) gm/dL Hct (34.0-46.0) % Plt Count (150-450) k/uL Neutrophils # (1.3-7.7) k/uL PT (9.0-12.0) sec INR (<1.2) ABG pH (7.35-7.45) ABG pO2 >400 H (83-108) mmHg ABG HCO3 (21-25) mmol/L ABG Total CO2 26 H (19-24) mmol/L ABG O2 Saturation 100.0 H (94-97) % ABG Hematocrit (34.0-46.0) % ABG Ionized Calcium (4.5-5.3) mg/dL ABG Glucose (75-99) mg/dL ABG Lactic Acid (0.5-1.6) mmol/L Hemoglobin (11.4-16.0) gm/dL Chloride (98-107) mmol/L Glucose (74-99) mg/dL POC Glucose (mg/dL) 104 H 110 H (75-99) mg/dL Calcium (8.4-10.2) mg/dL Magnesium (1.6-2.3) mg/dL AST (14-36) U/L Total Protein (6.3-8.2) g/dL Albumin (3.5-5.0) g/dL Arterial Blood Glucose (75-99) mg/dL Crossmatch 10/31/18 10/31/18 10/31/18 Range/Units 14:09 15:17 15:20 WBC 13.0 H (3.8-10.6) k/uL RBC 3.26 L (3.80-5.40) m/uL Hgb 9.6 L (11.4-16.0) gm/dL Hct 29.5 L (34.0-46.0) % Plt Count 127 L (150-450) k/uL Neutrophils # 10.6 H (1.3-7.7) k/uL PT (9.0-12.0) sec INR (<1.2) ABG pH (7.35-7.45) ABG pO2 (83-108) mmHg ABG HCO3 (21-25) mmol/L ABG Total CO2 (19-24) mmol/L ABG O2 Saturation (94-97) % ABG Hematocrit (34.0-46.0) % ABG Ionized Calcium (4.5-5.3) mg/dL ABG Glucose (75-99) mg/dL ABG Lactic Acid (0.5-1.6) mmol/L Hemoglobin (11.4-16.0) gm/dL Chloride (98-107) mmol/L Glucose (74-99) mg/dL POC Glucose (mg/dL) 157 H 135 H (75-99) mg/dL Calcium (8.4-10.2) mg/dL Magnesium (1.6-2.3) mg/dL AST (14-36) U/L Total Protein (6.3-8.2) g/dL Albumin (3.5-5.0) g/dL Arterial Blood Glucose (75-99) mg/dL Crossmatch 10/31/18 10/31/18 10/31/18 Range/Units 15:47 16:57 18:15 WBC (3.8-10.6) k/uL RBC (3.80-5.40) m/uL Hgb (11.4-16.0) gm/dL Hct (34.0-46.0) % Plt Count (150-450) k/uL Neutrophils # (1.3-7.7) k/uL PT (9.0-12.0) sec INR (<1.2) ABG pH (7.35-7.45) ABG pO2 128 H (83-108) mmHg ABG HCO3 (21-25) mmol/L ABG Total CO2 26 H (19-24) mmol/L ABG O2 Saturation 99.0 H (94-97) % ABG Hematocrit (34.0-46.0) % ABG Ionized Calcium (4.5-5.3) mg/dL ABG Glucose (75-99) mg/dL ABG Lactic Acid (0.5-1.6) mmol/L Hemoglobin (11.4-16.0) gm/dL Chloride (98-107) mmol/L Glucose (74-99) mg/dL POC Glucose (mg/dL) 131 H 118 H (75-99) mg/dL Calcium (8.4-10.2) mg/dL Magnesium (1.6-2.3) mg/dL AST (14-36) U/L Total Protein (6.3-8.2) g/dL Albumin (3.5-5.0) g/dL Arterial Blood Glucose (75-99) mg/dL Crossmatch 10/31/18 10/31/18 10/31/18 Range/Units 18:20 19:15 21:21 WBC (3.8-10.6) k/uL RBC 3.17 L (3.80-5.40) m/uL Hgb 9.3 L (11.4-16.0) gm/dL Hct 28.9 L (34.0-46.0) % Plt Count 121 L (150-450) k/uL Neutrophils # 8.7 H (1.3-7.7) k/uL PT (9.0-12.0) sec INR (<1.2) ABG pH (7.35-7.45) ABG pO2 (83-108) mmHg ABG HCO3 (21-25) mmol/L ABG Total CO2 (19-24) mmol/L ABG O2 Saturation (94-97) % ABG Hematocrit (34.0-46.0) % ABG Ionized Calcium (4.5-5.3) mg/dL ABG Glucose (75-99) mg/dL ABG Lactic Acid (0.5-1.6) mmol/L Hemoglobin (11.4-16.0) gm/dL Chloride (98-107) mmol/L Glucose (74-99) mg/dL POC Glucose (mg/dL) 121 H 143 H (75-99) mg/dL Calcium (8.4-10.2) mg/dL Magnesium (1.6-2.3) mg/dL AST (14-36) U/L Total Protein (6.3-8.2) g/dL Albumin (3.5-5.0) g/dL Arterial Blood Glucose (75-99) mg/dL Crossmatch 10/31/18 10/31/18 11/01/18 Range/Units 22:07 23:40 01:14 WBC (3.8-10.6) k/uL RBC (3.80-5.40) m/uL Hgb (11.4-16.0) gm/dL Hct (34.0-46.0) % Plt Count (150-450) k/uL Neutrophils # (1.3-7.7) k/uL PT (9.0-12.0) sec INR (<1.2) ABG pH (7.35-7.45) ABG pO2 (83-108) mmHg ABG HCO3 (21-25) mmol/L ABG Total CO2 (19-24) mmol/L ABG O2 Saturation (94-97) % ABG Hematocrit (34.0-46.0) % ABG Ionized Calcium (4.5-5.3) mg/dL ABG Glucose (75-99) mg/dL ABG Lactic Acid (0.5-1.6) mmol/L Hemoglobin (11.4-16.0) gm/dL Chloride (98-107) mmol/L Glucose (74-99) mg/dL POC Glucose (mg/dL) 127 H 116 H 106 H (75-99) mg/dL Calcium (8.4-10.2) mg/dL Magnesium (1.6-2.3) mg/dL AST (14-36) U/L Total Protein (6.3-8.2) g/dL Albumin (3.5-5.0) g/dL Arterial Blood Glucose (75-99) mg/dL Crossmatch 11/01/18 11/01/18 11/01/18 Range/Units 03:11 05:45 05:45 WBC (3.8-10.6) k/uL RBC 3.03 L (3.80-5.40) m/uL Hgb 8.9 L (11.4-16.0) gm/dL Hct 27.2 L (34.0-46.0) % Plt Count 90 L (150-450) k/uL Neutrophils # (1.3-7.7) k/uL PT (9.0-12.0) sec INR (<1.2) ABG pH (7.35-7.45) ABG pO2 (83-108) mmHg ABG HCO3 (21-25) mmol/L ABG Total CO2 (19-24) mmol/L ABG O2 Saturation (94-97) % ABG Hematocrit (34.0-46.0) % ABG Ionized Calcium (4.5-5.3) mg/dL ABG Glucose (75-99) mg/dL ABG Lactic Acid (0.5-1.6) mmol/L Hemoglobin (11.4-16.0) gm/dL Chloride (98-107) mmol/L Glucose 107 H (74-99) mg/dL POC Glucose (mg/dL) 116 H (75-99) mg/dL Calcium (8.4-10.2) mg/dL Magnesium 2.5 H (1.6-2.3) mg/dL AST 39 H (14-36) U/L Total Protein 4.9 L (6.3-8.2) g/dL Albumin 3.2 L (3.5-5.0) g/dL Arterial Blood Glucose (75-99) mg/dL Crossmatch 11/01/18 11/01/18 Range/Units 05:49 08:58 WBC (3.8-10.6) k/uL RBC (3.80-5.40) m/uL Hgb (11.4-16.0) gm/dL Hct (34.0-46.0) % Plt Count (150-450) k/uL Neutrophils # (1.3-7.7) k/uL PT (9.0-12.0) sec INR (<1.2) ABG pH (7.35-7.45) ABG pO2 (83-108) mmHg ABG HCO3 (21-25) mmol/L ABG Total CO2 (19-24) mmol/L ABG O2 Saturation (94-97) % ABG Hematocrit (34.0-46.0) % ABG Ionized Calcium (4.5-5.3) mg/dL ABG Glucose (75-99) mg/dL ABG Lactic Acid (0.5-1.6) mmol/L Hemoglobin (11.4-16.0) gm/dL Chloride (98-107) mmol/L Glucose (74-99) mg/dL POC Glucose (mg/dL) 114 H 186 H (75-99) mg/dL Calcium (8.4-10.2) mg/dL Magnesium (1.6-2.3) mg/dL AST (14-36) U/L Total Protein (6.3-8.2) g/dL Albumin (3.5-5.0) g/dL Arterial Blood Glucose (75-99) mg/dL Crossmatch Assessment and Plan Plan: Patient is a 63 yo CF s/p bovine aortic valve replacement. Extubated in the ICU. - Chest tube and mediastinal tube, swan kimberlee in place - management per CT surgery Acute blood loss anemia with thrombocytopenia - anticipated post surgery - follow CBC 8.9 - transfuse as needed HTN, essential - oral medications of amlodipine, benzapril on hold - follow BP HLD - lipitor Chronic pain - norco for pain Tobacco abuse - cessation - nicotine replacement DVT prophylaxis: heparin
[2018-11-01 10:24] VITALS: BMI 26.8
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
[2018-11-01 12:17] LABS: Glucose,Whole Blood 130 mg/dL (75-99)
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
[2018-11-01] MEDS: INSULIN ASPART (NovoLOG) 100 UNIT/ML VIAL SQ SCH ×3 (17:16→21:46)
[2018-11-01 17:26] LABS: Glucose,Whole Blood 144 mg/dL (75-99)
[2018-11-01] MEDS: SENNOSIDES-DOCUSATE SODIUM 1 EACH TAB PO SCH (20:11)
[2018-11-01 21:08] LABS: Glucose,Whole Blood 210 mg/dL (75-99)
[2018-11-01 21:52] LABS: Glucose,Whole Blood 148 mg/dL (75-99)
[2018-11-02] MEDS: HYDROcodone/APAP 5-325MG 1 EACH TAB PO PRN (01:11)
[2018-11-02 04:40] LABS: Basophils % (A) 0 %; Eosinophils # (A) 0.3 k/uL (0-0.7); Eosinophils % (A) 2 %; HCT 28.4 % (34.0-46.0); HGB 9.3 gm/dL (11.4-16.0); Lymphocytes # (A) 1.9 k/uL (1.0-4.8); Lymphocytes % (A) 13 %; MCH 29.7 pg (25.0-35.0); MCHC 32.7 g/dL (31.0-37.0); MCV 90.8 fL (80.0-100.0); Mean Platelet Volume 10.3; Monocytes # (A) 0.8 k/uL (0-1.0); Monocytes % (A) 5 %; Neutrophils # (A) 11.2 k/uL (1.3-7.7); Neutrophils % (A) 78 %; Platelet Count 114 k/uL (150-450); RBC 3.12 m/uL (3.80-5.40); RDW 14.2 % (11.5-15.5); WBC 14.4 k/uL (3.8-10.6)
[2018-11-02 04:50] LABS: Ionized Calcium 4.9 mg/dL (4.5-5.3)
[2018-11-02] MEDS: HEPARIN SODIUM,PORCINE 5,000 UNIT/ML 1 ML VIAL SQ SCH ×3 (04:54→21:04)
[2018-11-02 04:59] LABS: Albumin 3.2 g/dL (3.5-5.0); Calcium 8.6 mg/dL (8.4-10.2); Total Bilirubin 1.1 mg/dL (0.2-1.3); Total Protein 5.1 g/dL (6.3-8.2)
[2018-11-02] MEDS: KETOROLAC 30 MG/ML 1 ML VIAL IVP SCH ×3 (05:13→17:52)
[2018-11-02] MEDS: INSULIN ASPART (NovoLOG) 100 UNIT/ML VIAL SQ SCH ×4 (06:48→21:03)
[2018-11-02] MEDS: PANTOPRAZOLE 40 MG TABLET PO SCH (06:49)
[2018-11-02 06:55] LABS: Glucose,Whole Blood 155 mg/dL (75-99)
--- NOTE | 2018-11-02 07:39 | XR ---
EXAMINATION TYPE: XR chest 1V portable DATE OF EXAM: 11/02/2018 COMPARISON: 11/01/2018 HISTORY: Post cardiac surgery TECHNIQUE: Single frontal view of the chest is obtained. FINDINGS: Bilateral consolidation and pleural effusion stable. Postsurgical change and cardiomegaly stable. Left-sided chest tube is been removed. Tiny less than 5% apical pneumothorax suspected. Inter stitial pattern noted. [place] catheter mediastinal drain have been removed. IMPRESSION: 1. Persistent pleural parenchymal changes most typical of CHF. 2. Chest tube removal with tiny less than 5% left apical pneumothorax
[2018-11-02] MEDS: ASPIRIN 325 MG TAB PO SCH (08:03)
[2018-11-02] MEDS: ATORVASTATIN 40 MG TAB PO SCH (08:03)
[2018-11-02] MEDS: MULTIVITAMINS, THERA 1 EACH TAB PO SCH (08:03)
[2018-11-02] MEDS: oxyCODONE ER 15 MG TAB.ER.12H PO SCH ×3 (08:04→21:05)
[2018-11-02] MEDS: METOPROLOL TARTRATE 12.5 MG TAB PO SCH ×2 (08:04→21:05)
[2018-11-02] MEDS: MUPIROCIN 2% OINT 22 GM TUBE NASAL SCH ×2 (08:05→21:10)
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
[2018-11-02] MEDS: IPRATROPIUM-ALBUTEROL 3 ML NEB INHALATION SCH ×4 (08:44→20:03)
--- NOTE | 2018-11-02 09:03 | P.PN ---
Subjective Principal diagnosis: aortic valve replacement feels ok , up in chair not in distress , no cp no sob , no abd pain Objective - Vital Signs Vital signs: Vital Signs Temp 98.7 F 11/02/18 08:00 Pulse 57 L 11/02/18 08:45 Resp 20 11/02/18 08:00 BP 115/62 11/01/18 23:01 Pulse Ox 97 11/02/18 08:00 Intake & Output 11/01/18 11/02/18 11/02/18 18:59 06:59 18:59 Intake Total 564.528 390 30 Output Total 705 720 Balance -140.472 -330 30 Weight 73.1 kg 67.9 kg Intake: IV 560 390 30 0.9NS Cardiac Output 20 Lactated Ringers 1,000 ml 540 390 30 @ 50 mls/hr IV .Q20H JR Rx#:[id number] Intake, IV Titration 4.528 Amount Insulin Regular 100 unit 4.528 In Sodium Chloride 0.9% 100 ml @ Per Protocol IV .Q0M JR Rx#:[id number] Output: Chest Tube Drainage 80 Mediastinal and Left 80 Pleural Urine 625 720 Other: Voiding Method Indwelling Catheter Indwelling Catheter ABP, PAP, CO, CI - Last Documented Arterial Blood Pressure 153/60 Pulmonary Artery Pressure 28/16 Cardiac Output 4.6 Cardiac Index 2.7 - Exam Constitutional: No acute distress, conversant Eyes: Anicteric sclerae ENMT: NC/AT,Oropharynx clear Neck:Supple, No carotid bruits Lungs: Clear to auscultation, Clear to percussion, Normal respiratory effort, no accessory muscle use Cardiovascular: Heart regular in rate and rhythm, No murmurs, gallops, or rubs no peripheral edema Abdominal: Soft Nontender, nom distended, no guarding, no rebound or rigidity, Normoactive bowel sounds Extremities:No digital cyanosis No clubbing, Psychiatric: Alert and oriented to person, place and time Neuro: Muscles Strength 5/5 in all 4 extremities, Sensation to light touch grossly present throughout, Cranial nerves II-XII grossly intact. - Labs CBC & Chem 7: 11/02/18 04:32 11/02/18 04:32 Labs: Abnormal Lab Results - Last 24 Hours (Table) 11/01/18 11/01/18 11/01/18 Range/Units 08:58 11:00 12:06 WBC (3.8-10.6) k/uL RBC (3.80-5.40) m/uL Hgb (11.4-16.0) gm/dL Hct (34.0-46.0) % Plt Count (150-450) k/uL Neutrophils # (1.3-7.7) k/uL Sodium (137-145) mmol/L BUN (7-17) mg/dL Glucose (74-99) mg/dL POC Glucose (mg/dL) 186 H 130 H (75-99) mg/dL AST (14-36) U/L Total Protein (6.3-8.2) g/dL Albumin (3.5-5.0) g/dL Crossmatch See Detail 11/01/18 11/01/18 11/01/18 Range/Units 17:13 20:57 21:41 WBC (3.8-10.6) k/uL RBC (3.80-5.40) m/uL Hgb (11.4-16.0) gm/dL Hct (34.0-46.0) % Plt Count (150-450) k/uL Neutrophils # (1.3-7.7) k/uL Sodium (137-145) mmol/L BUN (7-17) mg/dL Glucose (74-99) mg/dL POC Glucose (mg/dL) 144 H 210 H 148 H (75-99) mg/dL AST (14-36) U/L Total Protein (6.3-8.2) g/dL Albumin (3.5-5.0) g/dL Crossmatch 11/02/18 11/02/18 11/02/18 Range/Units 04:32 04:32 06:44 WBC 14.4 H (3.8-10.6) k/uL RBC 3.12 L (3.80-5.40) m/uL Hgb 9.3 L (11.4-16.0) gm/dL Hct 28.4 L (34.0-46.0) % Plt Count 114 L (150-450) k/uL Neutrophils # 11.2 H (1.3-7.7) k/uL Sodium 131 L (137-145) mmol/L BUN 18 H (7-17) mg/dL Glucose 131 H (74-99) mg/dL POC Glucose (mg/dL) 155 H (75-99) mg/dL AST 43 H (14-36) U/L Total Protein 5.1 L (6.3-8.2) g/dL Albumin 3.2 L (3.5-5.0) g/dL Crossmatch Assessment and Plan Plan: Patient is a 63 yo CF s/p bovine aortic valve replacement. Extubated in the ICU. - management per CT surgery Acute blood loss anemia with thrombocytopenia - anticipated post surgery - follow CBC up to 9.3 , plt up to 114 - transfuse as needed HTN, essential - oral medications of amlodipine, benzapril on hold, on Lopressor - follow BP HLD - lipitor Chronic pain - norco for pain Tobacco abuse - cessation - nicotine replacement DVT prophylaxis: heparin
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
--- NOTE | 2018-11-02 11:11 | P.PN ---
Subjective This is Angy Huynh PA-C dictating a progress note on this patient The patient was interviewed and examined by me IMPRESSION / ASSESSMENT: Aortic stenosis status post aortic valve replacement Hypertension Dyslipidemia PLAN: Continue to monitor telemetry for bradycardia and arrhythmias Continue low-dose metoprolol, aspirin and statin HPI/interval history Patient is a 63-year-old female past medical history aortic stenosis who is po stop day #2 status post aortic valve replacement. Still complaining of postoperative pain which has improved somewhat after the chest tubes were removed. Denies any palpitations. EXAMINATION Temperature 98.7F, pulse 60, respirations 20, blood pressure 129/62, oxygen saturation 100% on room air Patient seen and examined resting comfortably in her chair Lungs mildly diminished, clear, equal bilaterally Heart is regular, soft systolic murmur appreciated No elevated JVD No lower extremity edema REVIEW OF LABS, ECG WBC 14.4, hemoglobin 9.3, potassium 5.0, BUN 18, creatinine 0.93 Rhythm strips reveal sinus rhythm, normal MO, narrow QRS, heart rate in the 60s, few PACs Objective - Vital Signs Vital signs: Vital Signs Temp 98.7 F 11/02/18 08:00 Pulse 62 11/02/18 10:00 Resp 22 11/02/18 10:00 BP 115/62 11/01/18 23:01 Pulse Ox 95 11/02/18 10:00 Intake & Output 11/01/18 11/02/18 11/02/18 18:59 06:59 18:59 Intake Total 564.528 390 90 Output Total 705 720 Balance -140.472 -330 90 Weight 73.1 kg 67.9 kg Intake: IV 560 390 90 0.9NS Cardiac Output 20 Lactated Ringers 1,000 ml 540 390 90 @ 50 mls/hr IV .Q20H [facility] Rx#:[id number] Intake, IV Titration 4.528 Amount Insulin Regular 100 unit 4.528 In Sodium Chloride 0.9% 100 ml @ Per Protocol IV .Q0M JR Rx#:[id number] Output: Chest Tube Drainage 80 Mediastinal and Left 80 Pleural Urine 625 720 Other: Voiding Method Indwelling Catheter Indwelling Catheter ABP, PAP, CO, CI - Last Documented Arterial Blood Pressure 127/58 Pulmonary Artery Pressure 28/16 Cardiac Output 4.6 Cardiac Index 2.7 - Labs CBC & Chem 7: 11/02/18 04:32 11/02/18 04:32 Labs: Abnormal Lab Results - Last 24 Hours (Table) 11/01/18 11/01/18 11/01/18 Range/Units 12:06 17:13 20:57 WBC (3.8-10.6) k/uL RBC (3.80-5.40) m/uL Hgb (11.4-16.0) gm/dL Hct (34.0-46.0) % Plt Count (150-450) k/uL Neutrophils # (1.3-7.7) k/uL Sodium (137-145) mmol/L BUN (7-17) mg/dL Glucose (74-99) mg/dL POC Glucose (mg/dL) 130 H 144 H 210 H (75-99) mg/dL AST (14-36) U/L Total Protein (6.3-8.2) g/dL Albumin (3.5-5.0) g/dL 11/01/18 11/02/18 11/02/18 Range/Units 21:41 04:32 04:32 WBC 14.4 H (3.8-10.6) k/uL RBC 3.12 L (3.80-5.40) m/uL Hgb 9.3 L (11.4-16.0) gm/dL Hct 28.4 L (34.0-46.0) % Plt Count 114 L (150-450) k/uL Neutrophils # 11.2 H (1.3-7.7) k/uL Sodium 131 L (137-145) mmol/L BUN 18 H (7-17) mg/dL Glucose 131 H (74-99) mg/dL POC Glucose (mg/dL) 148 H (75-99) mg/dL AST 43 H (14-36) U/L Total Protein 5.1 L (6.3-8.2) g/dL Albumin 3.2 L (3.5-5.0) g/dL 11/02/18 Range/Units 06:44 WBC (3.8-10.6) k/uL RBC (3.80-5.40) m/uL Hgb (11.4-16.0) gm/dL Hct (34.0-46.0) % Plt Count (150-450) k/uL Neutrophils # (1.3-7.7) k/uL Sodium (137-145) mmol/L BUN (7-17) mg/dL Glucose (74-99) mg/dL POC Glucose (mg/dL) 155 H (75-99) mg/dL AST (14-36) U/L Total Protein (6.3-8.2) g/dL Albumin (3.5-5.0) g/dL
[2018-11-02 12:27] LABS: Glucose,Whole Blood 110 mg/dL (75-99)
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
[2018-11-02 17:00] LABS: Glucose,Whole Blood 107 mg/dL (75-99)
[2018-11-02 20:50] LABS: Glucose,Whole Blood 125 mg/dL (75-99)
[2018-11-02] MEDS: SENNOSIDES-DOCUSATE SODIUM 1 EACH TAB PO SCH (21:05)
[2018-11-02] MEDS: tiZANidine 4 MG TAB PO PRN (22:37)
[2018-11-03] MEDS: KETOROLAC 30 MG/ML 1 ML VIAL IVP SCH ×4 (00:39→23:47)
[2018-11-03] MEDS: HEPARIN SODIUM,PORCINE 5,000 UNIT/ML 1 ML VIAL SQ SCH ×3 (04:05→21:27)
[2018-11-03 04:41] LABS: HCT 26.4 % (34.0-46.0); HGB 8.3 gm/dL (11.4-16.0); Hypochromasia Moderate; MCH 29.6 pg (25.0-35.0); MCHC 31.6 g/dL (31.0-37.0); MCV 93.6 fL (80.0-100.0); Mean Platelet Volume 10.7; RBC 2.82 m/uL (3.80-5.40); RDW 13.9 % (11.5-15.5); WBC 8.7 k/uL (3.8-10.6)
[2018-11-03 04:50] LABS: Platelet Count 99 k/uL (150-450)
[2018-11-03 05:28] LABS: Calcium 8.1 mg/dL (8.4-10.2)
[2018-11-03 07:16] LABS: Glucose,Whole Blood 92 mg/dL (75-99)
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
[2018-11-03] MEDS: IPRATROPIUM-ALBUTEROL 3 ML NEB INHALATION SCH ×4 (08:15→19:29)
[2018-11-03] MEDS: INSULIN ASPART (NovoLOG) 100 UNIT/ML VIAL SQ SCH ×4 (08:24→23:32)
--- NOTE | 2018-11-03 08:25 | XR ---
EXAMINATION TYPE: XR chest 2V DATE OF EXAM: 11/03/2018 COMPARISON: Prior chest x-ray from yesterday. HISTORY: Post open cardiac surgery. TECHNIQUE: Frontal and lateral views of the chest are obtained. FINDINGS: There is partial visualization of surgical change in the cervical spine. Overlying sternal wires are redemonstrated. Anteroseptal defect closure device redemonstrated. Persistent small right pleural effusion and associated right basilar atelectasis and/or infiltrate. Persistent tiny left ple ural effusion. Cardiac silhouette Size is stable and enlarged. No significant pneumothorax identified on current study. IMPRESSION: Persistent cardiomegaly with tiny left pleural effusion and small right pleural effusion with associated right basilar atelectasis and/or infiltrate.
[2018-11-03] MEDS: ATORVASTATIN 40 MG TAB PO SCH (08:32)
[2018-11-03] MEDS: MULTIVITAMINS, THERA 1 EACH TAB PO SCH (08:32)
[2018-11-03] MEDS: METOPROLOL TARTRATE 12.5 MG TAB PO SCH ×2 (08:32→21:27)
[2018-11-03] MEDS: PANTOPRAZOLE 40 MG TABLET PO SCH (08:32)
[2018-11-03] MEDS: ASPIRIN 325 MG TAB PO SCH (08:32)
[2018-11-03] MEDS: oxyCODONE ER 15 MG TAB.ER.12H PO SCH ×3 (08:33→21:25)
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
[2018-11-03] MEDS: MUPIROCIN 2% OINT 22 GM TUBE NASAL SCH ×2 (11:11→23:32)
--- NOTE | 2018-11-03 12:08 | P.PN ---
Subjective Principal diagnosis: aortic valve replacement feels ok , up in chair not in distress , no cp no sob , no abd pain , no nausea, no vomiting. Objective - Vital Signs Vital signs: Vital Signs Temp 98.1 F 11/03/18 08:00 Pulse 78 11/03/18 09:00 Resp 31 H 11/03/18 09:00 BP 138/57 11/03/18 09:00 Pulse Ox 99 11/03/18 08:00 Intake & Output 11/02/18 11/03/18 11/03/18 18:59 06:59 18:59 Intake Total 90 300 0 Output Total 850 600 0 Balance -760 -300 0 Weight 71.4 kg Intake: IV 90 Lactated Ringers 1,000 ml 90 @ 50 mls/hr IV .Q20H [facility] Rx#:[id number] Oral 300 0 Output: Urine 850 600 0 Other: Voiding Method Bedside Commode Bedside Commode # Voids 1 # Bowel Movements 1 ABP, PAP, CO, CI - Last Documented Arterial Blood Pressure 117/29 Pulmonary Artery Pressure 28/16 Cardiac Output 4.6 Cardiac Index 2.7 - Exam Constitutional: No acute distress, conversant Eyes: Anicteric sclerae ENMT: NC/AT Neck:Supple, No carotid bruits Lungs: Clear to auscultation, Clear to percussion, no wheezing Cardiovascular: Heart regular in rate and rhythm, No murmurs, gallops, or rubs no peripheral edema Abdominal: Soft Nontender, nom distended, no guarding, no rebound or rigidity, Normoactive bowel sounds Extremities:No digital cyanosis No clubbing, Psychiatric: Alert and oriented to person, place and time Neuro: Muscles Strength 5/5 in all 4 extremities, Sensation to light touch grossly present throughout, Cranial nerves II-XII grossly intact. - Labs CBC & Chem 7: 11/03/18 04:31 11/03/18 04:31 Labs: Abnormal Lab Results - Last 24 Hours (Table) 11/02/18 11/02/18 11/02/18 Range/Units 12:15 16:49 20:39 RBC (3.80-5.40) m/uL Hgb (11.4-16.0) gm/dL Hct (34.0-46.0) % Plt Count (150-450) k/uL Sodium (137-145) mmol/L Carbon Dioxide (22-30) mmol/L BUN (7-17) mg/dL Glucose (74-99) mg/dL POC Glucose (mg/dL) 110 H 107 H 125 H (75-99) mg/dL Calcium (8.4-10.2) mg/dL 11/03/18 11/03/18 Range/Units 04:31 04:31 RBC 2.82 L (3.80-5.40) m/uL Hgb 8.3 L (11.4-16.0) gm/dL Hct 26.4 L (34.0-46.0) % Plt Count 99 L (150-450) k/uL Sodium 131 L (137-145) mmol/L Carbon Dioxide 20 L (22-30) mmol/L BUN 21 H (7-17) mg/dL Glucose 108 H (74-99) mg/dL POC Glucose (mg/dL) (75-99) mg/dL Calcium 8.1 L (8.4-10.2) mg/dL Assessment and Plan Plan: Patient is a 63 yo CF s/p bovine aortic valve replacement. - management per CT surgery Acute blood loss anemia with thrombocytopenia - anticipated post surgery - follow CBC up to 9.3 now down to 8.3, plt up to 114, now down to 99 - transfuse as needed HTN, essential - oral medications of amlodipine, benzapril on hold, on Lopressor - follow BP HLD - lipitor Chronic pain - norco for pain Tobacco abuse - nicotine replacement as indicated DVT prophylaxis: heparin
[2018-11-03 12:17] LABS: Glucose,Whole Blood 99 mg/dL (75-99)
[2018-11-03] MEDS: DIAZEPAM 5 MG TAB PO PRN (13:27)
[2018-11-03 17:06] LABS: Glucose,Whole Blood 128 mg/dL (75-99)
--- NOTE | 2018-11-03 20:32 | P.PN ---
Subjective Gabbi is doing well she is sitting comfortably in a chair and she denies any chest discomfort other than the incisional pain. Her pain level is a lot better than yesterday she looks comfortable in no respiratory distress dizziness lightheadedness or palpitations. On examination her pulse rate is in the 50s and 60s she is afebrile A 98.1F blood pressure is 130/50 mmHg Soft systolic murmur over the precordium Breath sounds are clear no rhonchi no crackles Abdomen soft nontender. No extremity edema Labs are reviewed sodium 131 potassium 5.0 bicarbonate 20 BUN 21 creatinine 0.92 hemoglobin 8.3 Impression 63-year-old female status post aortic valve replacement Hypertension Dyslipidemia Current smoker Status post aortic valve replacement Plan from a cardiac standpoint she is doing well and tolerating her medications. She is on aspirin and atorvastatin, low dose beta blockers 12.5 mg twice daily No changes in medications. From a cardiac standpoint she may go to the telemetry floor. Objective - Vital Signs Vital signs: Vital Signs Temp 98.2 F 11/03/18 16:00 Pulse 75 11/03/18 16:00 Resp 12 11/03/18 16:00 BP 101/54 11/03/18 16:00 Pulse Ox 96 11/03/18 16:00 Intake & Output 11/02/18 11/03/18 11/03/18 18:59 06:59 18:59 Intake Total 90 300 240 Output Total 850 600 200 Balance -760 -300 40 Weight 71.4 kg Intake: IV 90 Lactated Ringers 1,000 ml 90 @ 50 mls/hr IV .Q20H [facility] Rx#:[id number] Oral 300 240 Output: Urine 850 600 200 Other: Voiding Method Bedside Commode Bedside Commode # Voids 1 # Bowel Movements 1 ABP, PAP, CO, CI - Last Documented Arterial Blood Pressure 117/29 Pulmonary Artery Pressure 28/16 Cardiac Output 4.6 Cardiac Index 2.7 - Labs CBC & Chem 7: 11/03/18 04:31 11/03/18 04:31 Labs: Abnormal Lab Results - Last 24 Hours (Table) 11/02/18 11/02/18 11/03/18 Range/Units 16:49 20:39 04:31 RBC 2.82 L (3.80-5.40) m/uL Hgb 8.3 L (11.4-16.0) gm/dL Hct 26.4 L (34.0-46.0) % Plt Count 99 L (150-450) k/uL Sodium (137-145) mmol/L Carbon Dioxide (22-30) mmol/L BUN (7-17) mg/dL Glucose (74-99) mg/dL POC Glucose (mg/dL) 107 H 125 H (75-99) mg/dL Calcium (8.4-10.2) mg/dL 11/03/18 Range/Units 04:31 RBC (3.80-5.40) m/uL Hgb (11.4-16.0) gm/dL Hct (34.0-46.0) % Plt Count (150-450) k/uL Sodium 131 L (137-145) mmol/L Carbon Dioxide 20 L (22-30) mmol/L BUN 21 H (7-17) mg/dL Glucose 108 H (74-99) mg/dL POC Glucose (mg/dL) (75-99) mg/dL Calcium 8.1 L (8.4-10.2) mg/dL
[2018-11-03 21:08] LABS: Glucose,Whole Blood 123 mg/dL (75-99)
[2018-11-03] MEDS: SENNOSIDES-DOCUSATE SODIUM 1 EACH TAB PO SCH (21:27)
[2018-11-03] MEDS: tiZANidine 4 MG TAB PO PRN (23:47)
[2018-11-04] MEDS: KETOROLAC 30 MG/ML 1 ML VIAL IVP SCH ×5 (05:50→23:01)
[2018-11-04] MEDS: HEPARIN SODIUM,PORCINE 5,000 UNIT/ML 1 ML VIAL SQ SCH ×3 (06:16→20:56)
[2018-11-04 06:38] LABS: HCT 25.8 % (34.0-46.0); HGB 8.2 gm/dL (11.4-16.0); MCH 29.7 pg (25.0-35.0); MCHC 31.8 g/dL (31.0-37.0); MCV 93.4 fL (80.0-100.0); Mean Platelet Volume 9.5; Platelet Count 144 k/uL (150-450); RBC 2.76 m/uL (3.80-5.40); WBC 8.3 k/uL (3.8-10.6)
[2018-11-04] MEDS: PANTOPRAZOLE 40 MG TABLET PO SCH (06:59)
[2018-11-04 07:00] LABS: Glucose,Whole Blood 99 mg/dL (75-99)
[2018-11-04] MEDS: INSULIN ASPART (NovoLOG) 100 UNIT/ML VIAL SQ SCH ×4 (07:00→20:56)
[2018-11-04 07:15] LABS: Calcium 8.6 mg/dL (8.4-10.2); Potassium 4.9 mmol/L (3.5-5.1)
--- NOTE | 2018-11-04 07:25 | XR ---
EXAMINATION TYPE: XR chest 2V DATE OF EXAM: 11/04/2018 COMPARISON: 11/03/2018 INDICATION: Post cardiac surgery TECHNIQUE: Frontal and lateral views of the chest are obtained. FINDINGS: The heart size is normal. The pulmonary vasculature is normal. Small posterior pleural effusion is present.. Epicardial leads are present which would contraindicat e MRI in this patient this time. IMPRESSION: 1. Small posterior right pleural effusion
[2018-11-04] MEDS: ASPIRIN 325 MG TAB PO SCH (07:40)
[2018-11-04] MEDS: MULTIVITAMINS, THERA 1 EACH TAB PO SCH (07:40)
[2018-11-04] MEDS: ATORVASTATIN 40 MG TAB PO SCH (07:40)
[2018-11-04] MEDS: oxyCODONE ER 15 MG TAB.ER.12H PO SCH ×3 (07:40→20:59)
[2018-11-04] MEDS: METOPROLOL TARTRATE 12.5 MG TAB PO SCH ×2 (07:41→20:59)
[2018-11-04] MEDS: IPRATROPIUM-ALBUTEROL 3 ML NEB INHALATION SCH ×4 (07:59→19:30)
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
--- NOTE | 2018-11-04 11:25 | P.PN ---
Subjective Progress Note Date: 11/04/18 Principal diagnosis: aortic valve replacement feels ok , up in chair not in distress , no cp no sob , no abd pain , no nausea, no vomiting. Objective - Vital Signs Vital signs: Vital Signs Temp 97.2 F L 11/04/18 07:33 Pulse 64 11/04/18 08:14 Resp 18 11/04/18 07:33 BP 116/56 11/04/18 07:33 Pulse Ox 97 11/04/18 08:02 Intake & Output 11/03/18 11/04/18 11/04/18 18:59 06:59 18:59 Intake Total 720 320 230 Output Total 200 250 Balance 520 70 230 Weight 71.2 kg Intake: Oral 720 320 230 Output: Urine 200 250 Other: Voiding Method Bedside Commode Toilet # Voids 1 1 # Bowel Movements 1 ABP, PAP, CO, CI - Last Documented Arterial Blood Pressure 117/29 Pulmonary Artery Pressure 28/16 Cardiac Output 4.6 Cardiac Index 2.7 - Exam Constitutional: No acute distress Eyes: Anicteric sclerae ENMT: NC/AT Neck:Supple, No carotid bruits Lungs: Clear to auscultation, Clear to percussion, no wheezing Cardiovascular: Heart regular in rate and rhythm, No murmurs, gallops, or rubs no peripheral edema Abdominal: Soft Nontender, nom distended, no guarding, no rebound or rigidity, Normoactive bowel sounds Extremities:No digital cyanosis No clubbing, Psychiatric: Alert and oriented to person, place and time Neuro: Muscles Strength 5/5 in all 4 extremities, Cranial nerves II-XII grossly intact. - Labs CBC & Chem 7: 11/04/18 06:08 11/04/18 06:08 Labs: Abnormal Lab Results - Last 24 Hours (Table) 11/03/18 11/03/18 11/04/18 Range/Units 16:54 20:57 06:08 RBC 2.76 L (3.80-5.40) m/uL Hgb 8.2 L (11.4-16.0) gm/dL Hct 25.8 L (34.0-46.0) % Plt Count 144 L (150-450) k/uL Sodium (137-145) mmol/L BUN (7-17) mg/dL Creatinine (0.52-1.04) mg/dL Glucose (74-99) mg/dL POC Glucose (mg/dL) 128 H 123 H (75-99) mg/dL 11/04/18 Range/Units 06:08 RBC (3.80-5.40) m/uL Hgb (11.4-16.0) gm/dL Hct (34.0-46.0) % Plt Count (150-450) k/uL Sodium 131 L (137-145) mmol/L BUN 26 H (7-17) mg/dL Creatinine 1.08 H (0.52-1.04) mg/dL Glucose 106 H (74-99) mg/dL POC Glucose (mg/dL) (75-99) mg/dL Assessment and Plan Plan: Patient is a 63 yo CF s/p bovine aortic valve replacement. - management per CT surgery Acute blood loss anemia with thrombocytopenia - anticipated post surgery - follow CBC up to 9.3 down to 8.3, currently is stable at 8.2, plt up to 114, now improved to 144 - transfuse as needed HTN, essential - oral medications of amlodipine, benzapril on hold, on Lopressor - follow BP HLD - lipitor Chronic pain - norco for pain Tobacco abuse - nicotine replacement as indicated DVT prophylaxis: heparin Disposition: Home tomorrow
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
[2018-11-04 12:30] LABS: Glucose,Whole Blood 93 mg/dL (75-99)
--- NOTE | 2018-11-04 12:40 | P.PN ---
Subjective Patient is sitting comfortably in a chair. She has minimal discomfort in the incision looks quite comfortable smiling No dizziness lightheadedness palpitations No respiratory distress breathing comfortably She is afebrile 96.8F, pulse rate in the 60s on low-dose beta blockers Blood pressure 127/60 mmHg pulse ox 100% on room air Breath sounds are clear but decreased bilaterally on account of reduced respiratory effort Heart sounds are soft and regular Abdomen is soft nontender Extremities warm no edema Impression Bicuspid aortic valve with aortic stenosis status post aortic valve replacement Left atrial appendectomy with atrial Hypertension Dyslipidemia Current smoker Carotid artery disease Suggest Continue current medications Continue low-dose beta blockers Patient may go home from a cardiac standpoint and follow with her primary ca rdiologist she is doing well post aortic valve replacement Objective - Vital Signs Vital signs: Vital Signs Temp 96.8 F L 11/04/18 11:59 Pulse 67 11/04/18 11:59 Resp 18 11/04/18 11:59 BP 127/60 11/04/18 11:59 Pulse Ox 100 11/04/18 11:59 Intake & Output 11/03/18 11/04/18 11/04/18 18:59 06:59 18:59 Intake Total 720 320 230 Output Total 200 250 Balance 520 70 230 Weight 71.2 kg Intake: Oral 720 320 230 Output: Urine 200 250 Other: Voiding Method Bedside Commode Toilet # Voids 1 1 # Bowel Movements 1 ABP, PAP, CO, CI - Last Documented Arterial Blood Pressure 117/29 Pulmonary Artery Pressure 28/16 Cardiac Output 4.6 Cardiac Index 2.7 - Labs CBC & Chem 7: 11/04/18 06:08 11/04/18 06:08 Labs: Abnormal Lab Results - Last 24 Hours (Table) 11/03/18 11/03/18 11/04/18 Range/Units 16:54 20:57 06:08 RBC 2.76 L (3.80-5.40) m/uL Hgb 8.2 L (11.4-16.0) gm/dL Hct 25.8 L (34.0-46.0) % Plt Count 144 L (150-450) k/uL Sodium (137-145) mmol/L BUN (7-17) mg/dL Creatinine (0.52-1.04) mg/dL Glucose (74-99) mg/dL POC Glucose (mg/dL) 128 H 123 H (75-99) mg/dL 11/04/18 Range/Units 06:08 RBC (3.80-5.40) m/uL Hgb (11.4-16.0) gm/dL Hct (34.0-46.0) % Plt Count (150-450) k/uL Sodium 131 L (137-145) mmol/L BUN 26 H (7-17) mg/dL Creatinine 1.08 H (0.52-1.04) mg/dL Glucose 106 H (74-99) mg/dL POC Glucose (mg/dL) (75-99) mg/dL
[2018-11-04 16:36] LABS: Glucose,Whole Blood 117 mg/dL (75-99)
[2018-11-04] MEDS: DIAZEPAM 5 MG TAB PO PRN (19:01)
[2018-11-04 20:31] LABS: Glucose,Whole Blood 133 mg/dL (75-99)
[2018-11-04] MEDS: SENNOSIDES-DOCUSATE SODIUM 1 EACH TAB PO SCH (20:59)
[2018-11-04 21:08] VITALS: RESP 18
[2018-11-04] MEDS: CLEVIDIPINE BUTYRATE 25 MG in EMPTY BAG 1 BAG IV SCH (21:21)
[2018-11-04] MEDS: tiZANidine 4 MG TAB PO PRN (23:02)
[2018-11-05] MEDS: HEPARIN SODIUM,PORCINE 5,000 UNIT/ML 1 ML VIAL SQ SCH (03:06)
[2018-11-05 03:19] VITALS: TEMP 97.6
[2018-11-05 06:30] LABS: Glucose,Whole Blood 94 mg/dL (75-99)
[2018-11-05] MEDS: INSULIN ASPART (NovoLOG) 100 UNIT/ML VIAL SQ SCH (06:33)
[2018-11-05] MEDS: KETOROLAC 30 MG/ML 1 ML VIAL IVP SCH (06:50)
[2018-11-05] MEDS: PANTOPRAZOLE 40 MG TABLET PO SCH (06:51)
[2018-11-05 07:07] LABS: HGB 7.7 gm/dL (11.4-16.0); Hypochromasia Slight; MCH 28.9 pg (25.0-35.0); MCHC 31.9 g/dL (31.0-37.0); MCV 90.6 fL (80.0-100.0); Mean Platelet Volume 9.4; Platelet Count 186 k/uL (150-450); RBC 2.65 m/uL (3.80-5.40); RDW 14.1 % (11.5-15.5); WBC 7.7 k/uL (3.8-10.6)
[2018-11-05 07:20] LABS: Calcium 8.7 mg/dL (8.4-10.2); Potassium 5.3 mmol/L (3.5-5.1)
--- NOTE | 2018-11-05 07:25 | XR ---
EXAMINATION TYPE: XR chest 2V DATE OF EXAM: 11/05/2018 COMPARISON: Prior chest x-ray 11/04/2018 HISTORY: Post cardiac surgery, abnormal chest x-ray TECHNIQUE: Frontal and lateral views of the chest are obtained. FINDINGS: Patient is post median sternotomy and atrial appendage clipping placement. There are overl pete cardiac leads. Heart size is stable. There is some improvement in aeration at the right lung bas e. . No evident pneumothorax. There is overlying artifact, cardiac leads, epicardial pacing leads are present. IMPRESSION: There is improvement in aeration noted.
[2018-11-05] MEDS: IPRATROPIUM-ALBUTEROL 3 ML NEB INHALATION SCH ×2 (08:45→12:25)
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
[2018-11-05] MEDS ORDERED: BUPRENORPHINE TRANSDERM SCH (09:00)
[2018-11-05] MEDS: oxyCODONE ER 15 MG TAB.ER.12H PO SCH (09:20)
[2018-11-05] MEDS: ASPIRIN 325 MG TAB PO SCH (09:20)
[2018-11-05] MEDS: ATORVASTATIN 40 MG TAB PO SCH (09:20)
[2018-11-05] MEDS: MULTIVITAMINS, THERA 1 EACH TAB PO SCH (09:20)
[2018-11-05] MEDS: METOPROLOL TARTRATE 12.5 MG TAB PO SCH (09:20)
[2018-11-05] MEDS: DIAZEPAM 5 MG TAB PO PRN (09:24)
[2018-11-05 10:50] VITALS: BP 115/58; PULSE 67
[2018-11-05 11:49] LABS: Glucose,Whole Blood 106 mg/dL (75-99)
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
== END 2018-11-05 13:00 | disposition home health service (06) | DRG 220 ==
LOC: 2ORMAIN 05:59 → 2SICU 12:15 → 3SCARD 11-03 23:23
PROVIDERS: ADMIT Thoracic Surgery (Cardiothoracic Vascular Surgery); ATTEND Thoracic Surgery (Cardiothoracic Vascular Surgery)
PROC: 5A1221Z Performance of Cardiac Output, Continuous (ICD-10-PCS; 2018-10-31)
PROC: 02L70CK Occlusion of Left Atrial Appendage with Extraluminal Device, Open Approach (ICD-10-PCS; 2018-10-31)
PROC: B240ZZZ Ultrasonography of Single Coronary Artery (ICD-10-PCS; 2018-10-31)
PROC: 02RF08Z Replacement of Aortic Valve with Zooplastic Tissue, Open Approach (ICD-10-PCS; principal; 2018-10-31 08:00)
DX: I35.2 Nonrheumatic aortic (valve) stenosis with insufficiency (principal); J90 Pleural effusion, not elsewhere classified; J93.83 Other pneumothorax; D62 Acute posthemorrhagic anemia; I65.21 Occlusion and stenosis of right carotid artery; D69.6 Thrombocytopenia, unspecified; E78.5 Hyperlipidemia, unspecified; F17.210 Nicotine dependence, cigarettes, uncomplicated; G89.21 Chronic pain due to trauma; M43.10 Spondylolisthesis, site unspecified; I10 Essential (primary) hypertension; M54.5 Low back pain; Z79.899 Other long term (current) drug therapy; Z90.710 Acquired absence of both cervix and uterus; Z98.42 Cataract extraction status, left eye; Z98.41 Cataract extraction status, right eye; Z96.1 Presence of intraocular lens; Z88.8 Allergy status to other drugs, medicaments and biological substances; Z82.3 Family history of stroke; Z82.5 Family history of asthma and other chronic lower respiratory diseases
CPT/HCPCS: 71045; 71046; 80048; 80053; 82330; 82805; 83735; 85025; 85027; 85520; 85610; 85730; 86850; 86891; 86900; 86901; 86920; 88305; 88311; 94002; 94640; 94760